=== PATIENT | female | born 2000 | race Caucasian/White ===

== ENCOUNTER 2023-11-22 09:18 | Outpatient (CLI) | payer BC ==
[~2023-11-22] VITALS: Ht 160 cm; Wt 60.4 kg
[2023-11-22 09:26] VITALS: BP 121/86; PULSE 74; TEMP 98.3
[2023-11-22] MEDS ORDERED: NEURONTIN100 MG/CAP PO (09:46)
[2023-11-22] MEDS ORDERED: IMITREX50 MG PO (09:47)
[2023-11-22] MEDS ORDERED: SUDAFED 12 HOU120 MG PO (09:48)
[2023-11-22] MEDS ORDERED: TOPROL XL 25MG25 MG PO (11:55)
--- NOTE | 2023-11-22 12:01 | NUR ---
Pt transferred back to express unit rm 12. post procedure vitals taken. bs report and hand off of care to Mena CASE. Dr. Omer to bs to discuss poc
[2023-11-22 12:08] VITALS: BP 114/83; PULSE 77
== END 2023-11-22 12:18 | disposition home or self-care (01) ==
LOC: COL.CAR 09:18
DX: Z01.810 Encounter for preprocedural cardiovascular examination (principal)